=== PATIENT | male | born 1980 | race Two or more races ===

== ENCOUNTER 2017-06-06 15:09 | Emergency (ER) | payer OTHER ==
[~2017-06-06] VITALS: Ht 177.8 cm; Wt 81.6 kg
[2017-06-06] MEDS ORDERED: ACETAMINOPHEN 650 mg PER 20 mL UD ONE (15:35)
[2017-06-06] MEDS ORDERED: ACETAMINOPHEN 650 mg PER 20 mL UD PO ONE (15:45)
[2017-06-06 16:02] LABS: Basophils # (auto) 0 uL; Basophils % (auto) 0.2 % (0.0-2.0); Eosinophils # (auto) 0 uL; Hematocrit 45.2 % (41.0-53.0); Hemoglobin 15.6 g/dL (13.5-17.5); Lymphocytes # (auto) 1.5 uL; Lymphocytes % (auto) 24.6 % (10.0-50.0); Mean Corpuscular Hgb Conc. 34.5 g/dL (32.0-36.0); Mean Corpuscular Volume 86.8 fL (80.0-100.0); Monocytes # (auto) 0.6 uL; Monocytes % (auto) 9.9 % (0.0-12.0); Neutrophils % (auto) 65.3 % (37.0-80.0); Nucleated Red Blood Cells % 1.3 %; Red Cell Distribution Width 12.9 % (11.8-14.3); White Blood Cell 6.1 10^3/uL (4.4-10.8)
[2017-06-06 16:21] LABS: Albumin 3.8 g/dL (3.4-5.0); BUN/Creatinine Ratio 15.6; Bilirubin, Total 0.4 mg/dL (0.2-1.0); Calcium 8.4 mg/dL (8.5-10.1); Potassium 3.1 mmol/L (3.5-5.1); Total Protein 7.4 g/dL (6.4-8.2)
[2017-06-06 16:59] LABS: Platelet Count (auto) 80 10^3/uL (140-450)
[2017-06-06] MEDS ORDERED: SODIUM CHLORIDE 0.9% 1,000 ML IV ONE (17:45)
[2017-06-06] MEDS ORDERED: KETOROLAC TROMETH 30 MG/ML 1ML VIAL IV ONE (17:45)
[2017-06-06] MEDS ORDERED: LEVOFLOXACIN 500MG 100 ML IV ONE (17:45)
[2017-06-06] MEDS ORDERED: POTASSIUM CHL 20 Meq TABLET PO ONE (19:45)
[2017-06-06 20:01] VITALS: BP 110/79
== END 2017-06-06 19:08 | disposition home or self-care (01) ==
LOC: ER 15:15
DX: J18.1 Lobar pneumonia, unspecified organism (principal)
CPT/HCPCS: 36415; 71046; 80053; 85025; 94761; 96365; 96375; 99285; J1885; J1956; J7030